=== PATIENT | male | born 1970 | race American Indian/Alaskan Native ===

== ENCOUNTER 2017-09-01 16:02 | Inpatient (IN) | payer BC ==
[2017-09-01] MEDS ORDERED: NARCAN 2 MG/2 ML IV ONE (16:17)
[2017-09-01] MEDS ORDERED: NACL 0.9% 1000 ML 1,000 ML ONE (16:19)
[2017-09-01] MEDS ORDERED: NARCAN 2 MG/2 ML ONE (16:19)
[2017-09-01] MEDS ORDERED: NACL 0.9% 1000 ML 1,000 ML IV ONE ×2 (16:27→18:10)
[2017-09-01] MEDS ORDERED: VERSED IV ONE ×2 (16:39→23:00)
[2017-09-01] MEDS ORDERED: ZEMURON IV ONE ×3 (16:40→23:00)
[2017-09-01 16:45] LABS: Basophils % (Auto) 0.9 % (0.0-1.8); Eosinophils # (Auto) 0.1 K/mm3 (0.0-0.4); Eosinophils % (Auto) 3.8 % (0.0-4.3); Hematocrit 38.5 % (35.5-45.6); Hemoglobin 13.1 gm/dl (11.8-15.2); Lymphocytes % (Auto) 26.9 % (13.4-35.0); Mean Corpuscular HGB Conc 34 % (32-34); Mean Corpuscular Hemoglobin 31 pg (28-32); Mean Corpuscular Volume 91 fl (84-94); Monocytes # (Auto) 0.3 K/mm3 (0.0-0.8); Monocytes % (Auto) 6.4 % (0.0-7.3); Platelet Count 181 K/mm3 (140-440); Red Blood Count 4.26 M/mm3 (3.65-5.03); Red Cell Distribution Width 14.4 % (13.2-15.2)
[2017-09-01 16:55] LABS: INR 0.89 (0.87-1.13); Partial Thromboplastin Time 27.5 Sec. (24.2-36.6)
[2017-09-01 17:01] LABS: Alanine Aminotransferase 29 units/L (7-56); BUN/Creatinine Ratio 8; Blood Urea Nitrogen 10 mg/dL (9-20); Calcium 8.3 mg/dL (8.4-10.2); Hemolysis Index 10
[2017-09-01] MEDS ORDERED: ARTIFICIAL TEARS OPHTH OINT OU PRN ×2 (17:04→18:05)
[2017-09-01] MEDS ORDERED: VASELINE LIP THERAPY TP PRN ×2 (17:04→18:05)
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
[2017-09-01] MEDS ORDERED: DIPRIVAN 10 MG/ML 1,000 MG/100 ML BOTTLE IV SCH (18:00)
[2017-09-01] MEDS ORDERED: NACL 0.9% 500 ML IV SCH (18:00)
[2017-09-01] MEDS ORDERED: AMIDATE IV ONE ×2 (18:19→23:00)
[2017-09-01] MEDS ORDERED: MIDAZOLAM 100 MG in NACL 0.9% 80 ML IV SCH (19:00)
--- NOTE | 2017-09-01 20:49 | XRay Report ---
FINAL REPORT EXAM: XR ABDOMEN 1V AP HISTORY: OG TUBE PLACEMENT TECHNIQUE: KUB was performed time stamped at 2238 hours Comparison: None FINDINGS: The imaged of the aperture abdomen demonstrates a nasogastric or orogastric tube to be present projecting over the right lower lung compatible with right bronchial placement. It should be removed immediately. The stomach is extremely air-filled and distended. IMPRESSION: Bronchial placement of the nasogastric tube with the tip in the region of the right lower lobe. Air-filled distended stomach. Jeferson critical level 1 one result. Findings called on 09/01/2017 at 1936 hours Eastern Standard time.
--- NOTE | 2017-09-01 20:49 | XRay Report ---
FINAL REPORT EXAM: XR CHEST 1V AP HISTORY: Altered Mental Status TECHNIQUE: Portable supine chest x-ray Comparison: Abdomen x-ray time stamped 2238 hours FINDINGS: Time stamp on the image is 2155 hours Endotracheal tube tip projects well above the ivory. Lung volumes are low. Heart size is upper limits normal. There is basilar crowding. No pneumothorax. IMPRESSION: Patient is intubated with endotracheal tube tip well above the ivory at the level of medial clavicles. Low volume exam with basilar crowding. Heart size upper limits normal.
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
[2017-09-02] MEDS ORDERED: DUONEB *Not for PRN Use IH (04:59)
[2017-09-02] MEDS ORDERED: NACL 0.9% 1000 ML 1,000 ML IV SCH (05:00)
[2017-09-02] MEDS ORDERED: ZOFRAN IV PRN (05:01)
[2017-09-02] MEDS ORDERED: TYLENOL PR PRN (05:03)
[2017-09-02] MEDS ORDERED: PROVENTIL IH PRN (05:38)
[2017-09-02] MEDS: KCL 10MEQ/100ML 10 MEQ/100 ML BAG IV SCH (05:43)
[2017-09-02] MEDS: 1: FOLVITE 1 MG, INFUVITE 10 ML, VITAMIN B-1 100 MG in NACL 0.9% 1000 ML 988.8 ML 2: NA IV SCH ×2 (06:28→13:17)
[2017-09-02] MEDS ORDERED: DIPRIVAN 10 MG/ML 1,000 MG/100 ML BOTTLE IV ONE (06:30)
--- NOTE | 2017-09-02 08:59 | Cat Scan Report ---
FINAL REPORT EXAM: CT CERVICAL SPINE WO CON HISTORY: ams TECHNIQUE: Routine axial imaging was obtained of the cervical spine without IV contrast with sagittal coronal reconstructions. FINDINGS: There is moderate narrowing of the C4-C5 disc. There is mild narrowing of the remaining disc. The alignment appears normal. There is no evidence of fracture. The pre vertebral soft tissues and C1-C2 articulation appear intact. The patient is intubated. IMPRESSION: Multilevel disc degeneration noted. No acute injury.
--- NOTE | 2017-09-02 08:59 | XRay Report ---
FINAL REPORT EXAM: XR CHEST 1V AP HISTORY: follow up respiratory failure TECHNIQUE: A portable supine view of the chest was obtained and compared to the study of 09/01/2017. FINDINGS: The tip of the ET tube is 1 cm above the ivory. Heart size is normal. The lungs are not overtly congested. There are no localized infiltrates allowing for the depth of inspiration. There are EKG leads overlying chest wall. The skeletal structures appear well maintained. IMPRESSION: Suboptimal inspiration. No acute infiltrates or congestion.
--- NOTE | 2017-09-02 09:00 | Cat Scan Report ---
FINAL REPORT EXAM: CT ABDOMEN PELVIS W CON HISTORY: ams/trauma TECHNIQUE: Routine axial imaging was obtained of the abdomen and pelvis following the intravenous injection of iodinated contrast. Sagittal and coronal reconstructions were reviewed. FINDINGS: The lung bases reveal airspace disease in both lower lobes with atelectatic changes. Pleural fluid is not seen. The liver, gallbladder, pancreas, spleen, and adrenal glands appear normal. The kidneys enhance normally. There is a 1 cm cortical cyst in lower pole of left kidney. There is no evidence of hydronephrosis. The abdominal aorta is normal in caliber. The vascular structures enhance normally. The bowel loops are normal in caliber and course. There is no evidence of free fluid or adenopathy. The appendix appears normal. In the pelvis there is a Marlow catheter in the bladder. The prostate gland is normal size. The skeletal structures reveal arthritic changes of the L5-S1 level in the lumbar spine. IMPRESSION: No acute process in the abdomen and pelvis 1 cm cortical cyst left kidney. Arthritic changes in the lower lumbar spine. Extensive airspace disease with atelectasis in both lower lobes.
--- NOTE | 2017-09-02 09:00 | Cat Scan Report ---
FINAL REPORT EXAM: CT HEAD/BRAIN WO CON HISTORY: Altered Mental Status TECHNIQUE: Routine axial imaging was obtained of the brain without IV contrast. FINDINGS: The ventricular system is appropriate in size and is symmetric. There is no evidence of acute stroke or hemorrhage. The basal cisterns appear normal. The sinuses reveal patchy mucosal thickening in the frontal and ethmoid air cells. There mild mucosal thickening in the right sphenoid sinus. The mastoid air cells are well pneumatized. The calvarium appears intact IMPRESSION: No acute intracranial process. Mild patchy sinusitis noted.
--- NOTE | 2017-09-02 09:00 | Cat Scan Report ---
FINAL REPORT EXAM: CT CHEST W CON HISTORY: ams TECHNIQUE: Routine axial imaging was obtained of the thorax following the intravenous injection of iodinated contrast. Sagittal and coronal reconstructions were reviewed. FINDINGS: There is patchy airspace disease in the right upper lobe. There is extensive airspace disease in both lower lobes with atelectatic changes. Mild congestion cannot be excluded. The heart size is normal. The thoracic aorta is normal in caliber. Adenopathy is not identified. The patient is intubated with the tip of the ET tube just above the ivory. The skeletal structures reveal mild disc degeneration in the dorsal spine. In the upper abdomen the adrenal glands appear normal. At the thoracic inlet the thyroid gland appears normal. IMPRESSION: Extensive airspace disease in both lower lobes with atelectatic changes. Additional patchy airspace disease in the right upper lobe. Mild congestion cannot be excluded. Satisfactory intubation.
[2017-09-02 09:29] LABS: Bacteria,Urine 1+ /HPF (Negative); Bilirubin,Urine NEG (Negative); Blood,Urine MOD (Negative); Color,Urine Yellow (Yellow); Mucus,Urine FEW /HPF; Protein,Urine <15 mg/dL mg/dL (Negative); Triple Phosphate Crystal,Urine FEW; Urobilinogen,Urine < 2.0 mg/dL (<2.0)
[2017-09-02 09:33] LABS: Amphetamine Screen,Urine PRESUMPTIVE NEGATIVE; Cannabinoid Screen,Urine PRESUMPTIVE NEGATIVE; Cocaine Screen,Urine PRESUMPTIVE NEGATIVE; Methadone Screen,Urine PRESUMPTIVE NEGATIVE; Opiate Screen,Urine PRESUMPTIVE NEGATIVE
[2017-09-02 09:54] LABS: Benzodiazepines Screen,Urine PRESUMPTIVE POSITIVE
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
[2017-09-02] MEDS ORDERED: PANCREAZE DR 10,500 UNIT FEEDTUBE PRN (11:54)
[2017-09-02] MEDS ORDERED: SIMPLE SYRUP FEEDTUBE PRN ×2 (11:54)
[2017-09-02] MEDS ORDERED: SODIUM BICARBONATE FEEDTUBE PRN (11:54)
[2017-09-02] MEDS: PEPCID IV SCH (12:23)
[2017-09-02] MEDS: ASPIRIN PR SCH (12:23)
[2017-09-02] MEDS: HEPARIN SUB-Q SCH ×2 (12:23→21:32)
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
[2017-09-02] MEDS ORDERED: VANCOMYCIN 2,000 MG in NACL 0.9% 500 ML 500 ML IV ONE (14:45)
[2017-09-02] MEDS ORDERED: VANCOMYCIN PHARMACY TO DOSE IV SCH (15:00)
[2017-09-02] MEDS: ZOSYN/NS 4.5GM/100ML 4.5 GM/100 ML VIAL IV SCH ×2 (17:49→21:32)
[2017-09-02] MEDS ORDERED: VANCOMYCIN 1,500 MG in NACL 0.9% 500 ML 500 ML IV SCH (22:00)
[2017-09-03] MEDS: 1: FOLVITE 1 MG, INFUVITE 10 ML, VITAMIN B-1 100 MG in NACL 0.9% 1000 ML 988.8 ML 2: NA IV SCH ×4 (00:25→21:18)
[2017-09-03] MEDS: NORCO 5/325 PO PRN ×2 (03:40→22:00)
--- NOTE | 2017-09-03 04:53 | XRay Report ---
FINAL REPORT EXAM: XR CHEST 1V AP HISTORY: follow up respiratory failure TECHNIQUE: A portable upright view the chest was obtained and compared to the study of 09/02/2017. FINDINGS: The patient has been extubated since the previous study. The heart size is normal. The lungs appear congested. There is patchy airspace disease throughout the right lung which appears more prominent than the previous study. There mild atelectatic changes in left lung base. The skeletal structures otherwise well maintained IMPRESSION: Interval extubation. Stable mild congestion. Patchy airspace disease throughout the right lung which appears have worsened somewhat since previous study. Mild atelectatic changes left lung base also noted.
[2017-09-03] MEDS: ZOSYN/NS 4.5GM/100ML 4.5 GM/100 ML VIAL IV SCH ×3 (05:35→21:19)
[2017-09-03] MEDS: PEPCID IV SCH (10:28)
[2017-09-03] MEDS: HEPARIN SUB-Q SCH ×2 (10:29→21:22)
[2017-09-03] MEDS: VANCOMYCIN 1,500 MG in NACL 0.9% 500 ML 500 ML IV SCH ×2 (10:30→22:07)
--- NOTE | 2017-09-03 10:51 | Progress Note ---
Assessment and Plan 47 y/o male 1. Wean FiO2 to off 2. Transfer out of unit 3. Will sign off Subjective Date of service: 09/03/17 Interval history: Successful extubation. Awake and alert. Wants to eat Objective Vital Signs - 12hr 09/02/17 09/02/17 09/02/17 23:00 23:08 23:15 Temperature 100.6 F H Pulse Rate 84 78 Respiratory 22 19 Rate Blood Pressure 125/76 125/76 O2 Sat by Pulse 96 96 Oximetry 09/02/17 09/03/17 09/03/17 23:30 00:00 00:30 Temperature Pulse Rate 82 75 84 Respiratory 19 22 18 Rate Blood Pressure 126/82 127/72 128/76 O2 Sat by Pulse 96 96 95 Oximetry 09/03/17 09/03/17 09/03/17 01:00 01:30 02:00 Temperature Pulse Rate 75 77 74 Respiratory 19 19 20 Rate Blood Pressure 119/76 129/73 123/70 O2 Sat by Pulse 96 96 97 Oximetry 09/03/17 09/03/17 09/03/17 02:30 03:00 03:30 Temperature Pulse Rate 78 81 65 Respiratory 19 12 17 Rate Blood Pressure 105/71 121/80 120/69 O2 Sat by Pulse 93 96 95 Oximetry 09/03/17 09/03/17 09/03/17 03:49 04:00 04:30 Temperature 99.2 F Pulse Rate 70 65 Respiratory 20 17 Rate Blood Pressure 115/75 115/79 O2 Sat by Pulse 96 97 Oximetry 09/03/17 09/03/17 09/03/17 05:00 05:30 06:00 Temperature Pulse Rate 76 74 77 Respiratory 17 17 17 Rate Blood Pressure 115/75 114/72 108/69 O2 Sat by Pulse 93 97 96 Oximetry 09/03/17 09/03/17 09/03/17 06:30 07:00 07:30 Temperature Pulse Rate 75 72 65 Respiratory 16 19 17 Rate Blood Pressure 112/67 112/71 120/77 O2 Sat by Pulse 96 96 96 Oximetry 09/03/17 09/03/17 09/03/17 08:00 08:02 08:30 Temperature 98.5 F Pulse Rate 67 66 Respiratory 16 17 Rate Blood Pressure 120/78 123/79 O2 Sat by Pulse 95 96 97 Oximetry 09/03/17 09/03/17 09:00 09:30 Temperature Pulse Rate 68 66 Respiratory 17 17 Rate Blood Pressure 127/80 126/80 O2 Sat by Pulse 97 97 Oximetry Constitutional: comatose Eyes: non-icteric ENT: other (orally intubated and sedated but sedation has been turned) Neck: supple Effort: normal Ascultation: Bilateral: clear Percussion: Bilateral: not dull Cardiovascular: regular rate and rhythm Gastrointestinal: normoactive bowel sounds, soft Extremities: no edema, pink and warm, pulses normal CBC and BMP: 09/01/17 16:26 09/01/17 16:26 ABG, PT/INR, D-dimer: ABG POC ABG pH 7.392 (7.35-7.45) 09/02/17 05:06 POC ABG pCO2 40.5 (35-45) 09/02/17 05:06 POC ABG pO2 90 (80-105) 09/02/17 05:06 POC ABG HCO3 24.6 09/02/17 05:06 POC ABG Total CO2 09/02/17 05:06 POC ABG O2 Sat 97 09/02/17 05:06 PT/INR, D-dimer PT 12.5 Sec. (12.2-14.9) 09/01/17 16:26 INR 0.89 (0.87-1.13) 09/01/17 16:26 Abnormal lab findings: Abnormal Labs 09/01/17 09/01/17 09/01/17 16:22 16:26 16:26 WBC 3.9 L Lymph # 1.0 L POC ABG pH 7.222 L POC ABG pCO2 50.2 H POC ABG pO2 153 H Potassium 3.3 L Carbon Dioxide 21 L Calcium 8.3 L AST 44 H Salicylates Acetaminophen Plasma/Serum Alcohol 09/01/17 09/01/17 09/01/17 16:26 16:26 16:26 WBC Lymph # POC ABG pH POC ABG pCO2 POC ABG pO2 Potassium Carbon Dioxide Calcium AST Salicylates < 0.3 L Acetaminophen < 5.0 L Plasma/Serum Alcohol 0.14 H 09/01/17 19:20 WBC Lymph # POC ABG pH 7.289 L POC ABG pCO2 47.9 H POC ABG pO2 240 H Potassium Carbon Dioxide Calcium AST Salicylates Acetaminophen Plasma/Serum Alcohol
[2017-09-03] MEDS: ASPIRIN PO SCH (13:36)
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
[2017-09-03] MEDS ORDERED: HALDOL IM PRN (17:35)
[2017-09-03] MEDS ORDERED: ATIVAN IV PRN ×2 (17:35)
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
[2017-09-03] MEDS ORDERED: TRIPLE ANTIBIOTIC TP PRN (17:38)
[2017-09-03] MEDS ORDERED: TYLENOL PO PRN (17:41)
[2017-09-03] MEDS: KCL 10MEQ/100ML 10 MEQ/100 ML BAG IV SCH (18:10)
[2017-09-03] MEDS: ASPIRIN PR SCH (18:10)
[2017-09-04] MEDS: ZOSYN/NS 4.5GM/100ML 4.5 GM/100 ML VIAL IV SCH (06:14)
[2017-09-04 07:20] LABS: BUN/Creatinine Ratio 5; Blood Urea Nitrogen 5 mg/dL (9-20); Hemolysis Index 5
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
[2017-09-04] MEDS: 1: FOLVITE 1 MG, INFUVITE 10 ML, VITAMIN B-1 100 MG in NACL 0.9% 1000 ML 988.8 ML 2: NA IV SCH (08:12)
[2017-09-04] MEDS: ASPIRIN PO SCH (09:21)
[2017-09-04] MEDS: HEPARIN SUB-Q SCH (09:21)
[2017-09-04] MEDS ORDERED: LEVAQUIN PO SCH (10:00)
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
[2017-09-04 15:44] VITALS: BP 142/95
[2017-09-05] MEDS ORDERED: VITAMIN B-1 PO SCH (10:00)
[2017-09-05] MEDS ORDERED: FOLVITE PO SCH (10:00)
[2017-09-05] MEDS ORDERED: THERAGRAN Tab PO SCH (10:00)
== END 2017-09-04 16:30 | disposition home or self-care (01) | DRG 871 ==
LOC: ED 16:02 → CC1 09-02 04:42 → 3A 09-03 17:07
PROVIDERS: ADMIT Internal Medicine; ATTEND Internal Medicine
PROC: 5A1935Z Respiratory Ventilation, Less than 24 Consecutive Hours (ICD-10-PCS; principal; 2017-09-01)
PROC: 0BH17EZ Insertion of Endotracheal Airway into Trachea, Via Natural or Artificial Opening (ICD-10-PCS; 2017-09-01)
PROC: 4A033R1 Measurement of Arterial Saturation, Peripheral, Percutaneous Approach (ICD-10-PCS; 2017-09-02)
DX: A41.9 Sepsis, unspecified organism (principal); G92 Toxic encephalopathy; J96.00 Acute respiratory failure, unspecified whether with hypoxia or hypercapnia; J69.0 Pneumonitis due to inhalation of food and vomit; E87.6 Hypokalemia; F10.129 Alcohol abuse with intoxication, unspecified
CPT/HCPCS: 36415; 70450; 71045; 71260; 72125; 74018; 74177; 80048; 80053; 80307; 80320; 81001; 82803; 82962; 84484; 85025; 85610; 85730; 87040; 87070; 87205; 87806; 93005; 93010; 94002; 94003; 94640; 94760; 96361; 96374; 96375; A6250; G0480; J1644; J2250; J2310; J2543; J2704; J3370; J3411; J7030; J7040; Q9967